=== PATIENT | female | born 1985 | race Caucasian/White ===

== ENCOUNTER 2016-12-20 06:00 | Day surgery (SDC) | payer OTHER ==
[~2016-12-20] VITALS: Ht 162.6 cm; Wt 61.2 kg
[~2016-12-20 06:00] MED LIST: VENTOLIN0.09 MG/A1 IH
[2016-12-20] MEDS ORDERED: PARLODEL2.5 M1 PO (06:28)
[2016-12-20] MEDS ORDERED: IBUPROFEN 800 MG TAB PO PRN (07:30)
[2016-12-20] MEDS ORDERED: MORPHINE SULFATE 4 MG/ML SYR IM/IVP PRN (07:30)
[2016-12-20] MEDS ORDERED: ACETAMINOPHEN/CODEINE 300/30MG 1 TAB PO PRN (07:30)
[2016-12-20] MEDS ORDERED: ONDANSETRON 4 MG/2 ML VIAL IVP PRN ×2 (07:30→09:10)
[2016-12-20] MEDS ORDERED: PROPOFOL 200 MG/20 ML VIAL IV ONE (08:35)
[2016-12-20] MEDS ORDERED: DEXAMETHASONE 4 MG/ML VIAL ONE (08:35)
[2016-12-20] MEDS ORDERED: ONDANSETRON 4 MG/2 ML VIAL ONE (08:35)
[2016-12-20] MEDS ORDERED: SEVOFLURANE 250 ML BTL INH ONE (08:35)
[2016-12-20] MEDS ORDERED: MIDAZOLAM 2 MG/2 ML VIAL ONE (08:38)
[2016-12-20] MEDS ORDERED: fentaNYL 0.05 MG/ML VIAL ONE (08:39)
[2016-12-20] MEDS ORDERED: MEPERIDINE 50 MG/ML SYR ONE (08:39)
[2016-12-20] MEDS ORDERED: LACTATED RINGERS 1,000 ML IV SCH (09:06)
[2016-12-20] MEDS ORDERED: HYDROmorphone 1 MG/ML AMP IVP PRN (09:10)
[2016-12-20] MEDS ORDERED: diphenhydrAMINE 50 MG/ML VIAL IVP PRN (09:10)
[2016-12-20] MEDS ORDERED: MEPERIDINE 25 MG/ML SYR IVP PRN (09:10)
== END 2016-12-20 10:35 | disposition home or self-care (01) ==
LOC: MDS 06:00 → MMU 06:10 → MDS 10:35
PROVIDERS: ATTEND Obstetrics & Gynecology
DX: N92.1 Excessive and frequent menstruation with irregular cycle (principal); J45.909 Unspecified asthma, uncomplicated
CPT/HCPCS: 58558; J0690; J1100; J2175; J2250; J2405; J2704; J3010; J7060; J7120